=== PATIENT | male | born 1995 | race Caucasian/White ===

== ENCOUNTER 2016-10-06 10:50 | Emergency (ER) | payer SELFPAY ==
[2016-10-06] MEDS ORDERED: Sulfameth/Trimethoprim DS 800-160mg TAB ONE (11:02)
== END 2016-10-06 11:14 | disposition home or self-care (01) ==
LOC: BURERS 10:50
DX: K12.2 Cellulitis and abscess of mouth (principal); F17.210 Nicotine dependence, cigarettes, uncomplicated
CPT/HCPCS: 99282